=== PATIENT | male | born 1990 | race Caucasian/White ===

== ENCOUNTER 2025-06-02 10:47 | Outpatient (CLI) | payer OTHER, SELFPAY | END 2025-06-02 10:48 | disposition home or self-care (01) | PROVIDERS: Visit Provider Family Medicine | DX: E22.1 Hyperprolactinemia (principal); D35.2 Benign neoplasm of pituitary gland; Z13.6 Encounter for screening for cardiovascular disorders; Z13.79 Encounter for other screening for genetic and chromosomal anomalies | CPT/HCPCS: 80053; 80061; 81404; 81405; 83970; 84146; 84443 ==